=== PATIENT | female | born 1960 | race African-American/Black ===

== ENCOUNTER → 2020-09-17 | Day surgery (SDC) | payer MEDICARE ==
[~2020-09-17] VITALS: Ht 157.5 cm; Wt 85.0 kg
[~2020-09-17] MED LIST: DOXY100C2 PO; IV RINGERS,LACTATED 1000ML 1,000 ML IV SCH; LIDOCAINE 2% PF 5 ML VIAL. ONE; LURA20TA PO; PROPOFOL 10 MG/ML (20ML) VIAL. IV ONE
[2020-09-17 06:53] VITALS: BP 144/88
[2020-09-17 08:43] VITALS: BP 101/58
--- NOTE | 2020-09-21 15:08 | PATHOLOGY ---
[facility] Accession Number: [id number] . 01 Material submitted: . PART A: colon - DESCENDING COLON POLYP. Modifiers: descending PART B: sigmoid colon - SIGMOID COLON POLYP . 01 Clinical history: . [facility] EGD/COLON . 02 Diagnosis: A. Descending colon polypectomy: - Pedunculated tubular adenoma. . B. Sigmoid colon polypectomy: - Pedunculated tubular adenoma. (JPM:[place]; 09/21/2020) S 09/21/2020 0931 Local . 02 Comment: Sections of the descending colon polypectomy and sigmoid colon polypectomy appear similar and reveal pedunculated tubular adenomas. There is no high grade dysplasia or evidence of malignancy. The base of each polyp is lined by normal colonic mucosa. (JPM:[place]; 09/21/2020) . 02 Electronically signed: . Alen Castillo MD, Pathologist NPI- [id number] . 01 Gross description: . A. Received in formalin labeled "Musa, Magdaleno, descending colon polyp" is a estrella-brown nodular mucosal polyp measuring 1.3 x 1.2 x 0.7 cm. The margin is inked and the specimen is sectioned. The specimen is submitted entirely in A1. . B. Received in formalin labeled "Musa, Magdaleno, sigmoid polyp" is a estrella-brown nodular mucosal polyp measuring 1.8 x 1.7 x 1.6 cm. The margin is inked and the specimen is sectioned. The specimen is submitted entirely in B1-B2. ([facility]; 09/19/2020) SY/[facility] 09/19/2020 1033 Local . 02 Pathologist provided ICD-10: D12.4, D12.5 . 02 CPT . 810365, [id number] Specimen Comment: A courtesy copy of this report has been sent to [phone], [phone] Specimen Comment: [id number] Specimen Comment: Report sent to / DR PALACIO Specimen Comment: A duplicate report has been generated due to demographic updates. Performed at: 01 [facility] [address] [facility] [address], [place] [id number] MD Mani Montoya MD Phone: [phone] Performed at: 02 [facility] [address] [place], [place] [id number] MD Alen Castillo MD Phone: [phone]
== END | disposition home or self-care (01) ==
LOC: ENDOS 06:35
PROVIDERS: ATTEND Internal Medicine Gastroenterology
DX: D50.9 Iron deficiency anemia, unspecified (principal); R13.10 Dysphagia, unspecified; K29.60 Other gastritis without bleeding; K92.1 Melena; K57.30 Diverticulosis of large intestine without perforation or abscess without bleeding; K64.0 First degree hemorrhoids; D12.4 Benign neoplasm of descending colon; D12.5 Benign neoplasm of sigmoid colon; K63.89 Other specified diseases of intestine; K31.89 Other diseases of stomach and duodenum; F17.210 Nicotine dependence, cigarettes, uncomplicated; Z79.899 Other long term (current) drug therapy; Z98.890 Other specified postprocedural states; Z72.89 Other problems related to lifestyle
CPT/HCPCS: 43235; 45385; 88305; J2704; 45384